=== PATIENT | male | born 2000 | race African-American/Black ===

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

== ENCOUNTER 2019-04-06 06:10 | Emergency (ER) | payer OTHER ==
[~2019-04-06] VITALS: Ht 182.9 cm; Wt 61.7 kg
[2019-04-06 06:20] VITALS: BP 145/92; Ht 182.9 cm; Wt 61.7 kg
== END 2019-04-06 08:50 | disposition home or self-care (01) ==
LOC: ED 06:10
DX: T69.9XXA Effect of reduced temperature, unspecified, initial encounter (principal); R20.0 Anesthesia of skin; Z91.013 Allergy to seafood